=== PATIENT | male | born 1950 | race Caucasian/White ===

== ENCOUNTER 2017-06-25 18:28 | Inpatient (IN) | payer SELFPAY ==
[~2017-06-25] VITALS: Ht 177.8 cm; Wt 67.0 kg
[~2017-06-25 18:28] MED LIST: ALPR1CON PO; HYDR-2951 PO; LORTA5 PO
[2017-06-25 18:33] VITALS: BP 102/63; PULSE 77; RESP 18; TEMP 97.6; O2SAT 96
--- NOTE | 2017-06-25 19:48 | PD ---
HPI Chief Complaint: Pain: Acute or Chronic Time Seen by Provider: 19:26 Travel History International Travel<30 days: No Contact w/Intl Traveler<30days: No Traveled to known affect area: No History of Present Illness HPI This 66-year-old male presents to the emergency department complaining of left foot pain pallor and coolness over the past 10 days or so. Is a history of CAD , with a previous CABG as well as a mechanical aortic valve replacement, on warfarin. Denies any history of PAD. They did do a vein harvest in his upper left leg for his CABG. Denies any history of previous similar problems. Review of records shows that he had diminished pulses in his left foot in 2013 in his office visit. History of tobacco in the past. Otherwise had been feeling well. States symptoms came on fairly abruptly been worsening since onset. No other complaints. History Past Medical History Narrative Medical CAD, history of CABG History mechanical aortic valve replacement, on warfarin Allergies-Medications (Allergen,Severity, Reaction): Coded Allergies: codeine (Unverified Allergy, Severe, Rash, 06/25/17) Reported Meds & Prescriptions Reported Meds & Active Scripts Active Lortab 5/325 Tab (Hydrocodone-Acetaminophen) Acetaminophen 325/5 Hydrocodone Tab 1 Tab PO Q4H PRN Reported Lortab 5/500 Tab (Acetaminophen/Hydrocodone Bitart) 1 Tab Tab 1 Tab PO Q6HPRN Alprazolam 1 mg/ml oral soln (Alprazolam) 1 Mg/Ml Con 0.5 Mg PO HS Review of Systems Except as stated in HPI: all other systems reviewed are Neg Physical Exam Narrative GENERAL: 66-year-old man, no acute distress. SKIN: Focused skin assessment warm/dry. HEAD: Atraumatic. Normocephalic. EYES: Pupils equal and round. No scleral icterus. No injection or drainage. ENT: No nasal bleeding or discharge. Mucous membranes pink and moist. NECK: Trachea midline. No JVD. CARDIOVASCULAR: Regular rate and rhythm. No murmur appreciated. RESPIRATORY: No accessory muscle use. Clear to auscultation. Breath sounds equal bilaterally. GASTROINTESTINAL: Abdomen soft, non-tender, nondistended. Hepatic and splenic margins not palpable. MUSCULOSKELETAL: No obvious deformities. Left foot is minimally pale compared to the right. Capillary refill is 2-3 seconds, minimally prolonged compared to the right. Unable to palpate a DP pulse. With Doppler, there is a soft blowing pulse in the DP. No posterior tibial pulse. On the right, DP pulses palpable, PT pulses not palpable however could be found with Doppler. NEUROLOGICAL: Awake and alert. No obvious cranial nerve deficits. Motor grossly within normal limits. Normal speech. PSYCHIATRIC: Appropriate mood and affect; insight and judgment normal. Data Data Last Documented VS Vital Signs Date Time Temp Pulse Resp B/P (MAP) Pulse Ox O2 Delivery O2 Flow Rate FiO2 06/25/17 18:33 97.6 77 18 102/63 (76) 96 Orders Orders Complete Blood Count With Diff (06/25/17 19:42) Comprehensive Metabolic Panel (06/25/17 19:42) Act Partial Throm Time (Ptt) (06/25/17 19:42) Prothrombin Time / Inr (Pt) (06/25/17 19:42) Iv Access Insert/Monitor (06/25/17 19:42) Cta Runoff W Iv Contrast W 3d (06/25/17 ) [facility] Medical Decision Making Medical Screen Exam Complete: Yes Emergency Medical Condition: Yes Differential Diagnosis Peripheral arterial disease chronic, acute embolization or atherosclerotic plaque, dissection, other Narrative Course Medical decision making 66-year-old male presents emergency department for worsening peripheral arterial disease and pain in the left leg. He describes an acute worsening about 7-10 days ago. The leg is cool but not ischemic. He is on warfarin for his mechanical valve. Will check CTA, labs, reassess. Christos Valencia MD Jun 25, 2017 19:48
[2017-06-25] MEDS ORDERED: SODIUM CHLORID 0.9% 500 ML INJ 500 ML IV ONE (20:00)
[2017-06-25 20:07] LABS: AUTOMATED NEUTROPHIL # 3.5 TH/MM3 (1.8-7.7); BASOPHIL # 0.2 TH/MM3 (0-0.2); BASOPHIL % 3.3 % (0.0-2.0); EOSINOPHIL # 0.2 TH/MM3 (0-0.4); EOSINOPHIL % 2.8 % (0.0-4.0); HEMATOCRIT 41.3 % (39.0-51.0); HEMOGLOBIN 13.6 GM/DL (13.0-17.0); LYMPH % 28.8 % (9.0-44.0); LYMPHOCYTE # 1.7 TH/MM3 (1.0-4.8); MEAN CORPUSCULAR HEMOGLOBIN 32.2 PG (27.0-34.0); MEAN CORPUSCULAR HGB CONC 32.9 % (32.0-36.0); MEAN PLATELET VOLUME 8.4 FL (7.0-11.0); MONO % 7.7 % (0.0-8.0); MONOCYTE # 0.5 TH/MM3 (0-0.9); NEUT % 57.4 % (16.0-70.0); PLATELET COUNT 202 TH/MM3 (150-450); RED BLOOD COUNT 4.22 MIL/MM3 (4.50-5.90); RED CELL DISTRIBUTION WIDTH 15.6 % (11.6-17.2); WHITE BLOOD COUNT 6.1 TH/MM3 (4.0-11.0)
[2017-06-25 20:17] VITALS: BP 110/68; PULSE 72; RESP 14; O2SAT 99
[2017-06-25 20:18] LABS: CHLORIDE 108 MEQ/L (98-107); SODIUM (NA) 139 MEQ/L (136-145)
[2017-06-25 20:21] LABS: ALBUMIN 3.7 GM/DL (3.4-5.0); BICARBONATE 23.7 MEQ/L (21.0-32.0); CALCIUM 8.7 MG/DL (8.5-10.1); GLUCOSE,RANDOM 80 MG/DL (74-106)
[2017-06-25 20:22] LABS: BLOOD UREA NITROGEN 7 MG/DL (7-18)
[2017-06-25 20:23] LABS: INTERNATIONAL NORMALIZED RATIO 1.3 RATIO; PROTHROMBIN TIME - PATIENT 13.3 SEC (9.8-11.6)
[2017-06-25 20:24] LABS: ALT (GPT) 23 U/L (12-78)
[2017-06-25 20:25] LABS: AST (GOT) 26 U/L (15-37); GLOMERULAR FILTRATION RATE 75 ML/MIN (>89)
[2017-06-25 20:26] LABS: TOTAL BILIRUBIN ADULT 0.3 MG/DL (0.2-1.0); TOTAL PROTEIN 7.8 GM/DL (6.4-8.2)
[2017-06-25 20:27] LABS: ALKALINE PHOSPHATASE 84 U/L (45-117)
[2017-06-25] MEDS ORDERED: WARF4TAB51 PO (20:28)
[2017-06-25] MEDS ORDERED: IOHEXOL 350 MG/ML 10 ML VIAL (for RAD DIAG) IVCONTRAST ONE (21:23)
[2017-06-25 21:30] VITALS: BP 127/67; PULSE 68; RESP 14; O2SAT 98
[2017-06-25 22:50] VITALS: BP 138/78; PULSE 78; RESP 16; O2SAT 100
--- NOTE | 2017-06-25 22:55 | RADRPT ---
EXAM DATE/TIME: 06/25/2017 21:13 [facility] COMPARISON: No previous studies available for comparison. INDICATIONS : Left cold and painful foot. IV CONTRAST: 95 cc Omnipaque 350 (iohexol) IV RADIATION DOSE: 6.05 CTDIvol (mGy) MEDICAL HISTORY : Cardiovascular disease. SURGICAL HISTORY : CABG Aortic valve replacement. ENCOUNTER: Initial ACUITY: 1 day PAIN SCALE: 6/10 LOCATION: Left foot TECHNIQUE: Volumetric scanning was performed using a multi-row detector CT scanner. The data was post processed with a variety of visualization algorithms including full volume maximum intensity projection, multi -planar sliding thin slab reformation, curved planar reformation, and surface rendering techniques. Using automated exposure control and adjustment of the mA and/or kV according to patient size, radiat ion dose was kept as low as reasonably achievable to obtain optimal diagnostic quality images. DICO M format image data is available electronically for review and comparison. FINDINGS: Abdominal aorta: Mild atherosclerotic calcification without aneurysmal disease. Single bilateral renal arteries. The r ight is widely patent with a 50% nonostial stenosis of the left. Mild ostial stenosis of the celiac a nd the SMA with no significant stenosis Pelvis: Atherosclerotic calcification of the iliacs bilaterally but the iliacs both appear to be patent. Right lower extremity: Atherosclerotic calcification of the profunda and SFA but both are patent. Mild irregularity of the p opliteal. The popliteal is patent down to the trifurcation with three-vessel runoff. Left lower extremity: Abrupt occlusion of the common femoral artery with collateral reconstitution of the profunda. The pro ximal SFA is very diminutive and reconstitutes in the proximal 5. The vessel is irregular but patent down to the above-knee popliteal. The popliteal is widely patent extensive collaterals. Popliteal is patent on the trifurcation with 2 vessel runoff via the anterior tibial and peroneal. Miscellaneous: Cortical scarring in the upper and lower pole of the left kidney. Diverticular disease of the descend ing and sigmoid colon without diverticulitis. Abdominal and pelvic viscera are otherwise intact. CONCLUSION: 1. There is abrupt occlusion of the common femoral artery on the left characteristic of an acute or s ubacute occlusion. 2. However, brisk collaterals reconstitute the profunda which subsequently provides well-developed co llaterals to the above-knee popliteal. Popliteal is patent at the trifurcation with 2 vessel runoff. The SFA is diffusely diseased and quite diminutive proximally, reconstituting a few centimeters below the common femoral occlusion. 3. On the right, inflow and outflow are adequate with three-vessel runoff. 4. Cortical scarring in the upper and lower pole the left kidney. There is an approximate 50% nonosti al stenosis in the left renal artery. 5. 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 Carlos Parekh MD on June 25, 2017 at 22:40 Board Certified Radiologist. This report was verified electronically.
[2017-06-25] MEDS ORDERED: HEPARIN-D5W 25,000 U/250 ML 250 ML IV PRN (23:30)
[2017-06-25 23:54] VITALS: BP 144/79; PULSE 61; RESP 14; O2SAT 96
[2017-06-26] VITALS (7 sets, daily range): BP systolic 109–138; BP diastolic 60–75; PULSE 45–53; RESP 12–16; TEMP 97.3–98.1; O2SAT 94–97
--- NOTE | 2017-06-26 01:29 | PD.CAR.PN ---
CVT Progress Note Subjective/Hospital Course: Referral received Full consult TIEN Casillas Objective: Vital Signs Date Time Temp Pulse Resp B/P (MAP) Pulse Ox O2 Delivery O2 Flow Rate FiO2 06/25/17 23:54 61 14 144/79 (100) 96 Room Air 06/25/17 22:50 78 16 138/78 (98) 100 Room Air 06/25/17 21:30 68 14 127/67 (87) 98 Room Air 06/25/17 20:17 72 14 110/68 (82) 99 Room Air 06/25/17 18:33 97.6 77 18 102/63 (76) 96 Labs: Laboratory Tests Test 06/25/17 20:01 White Blood Count 6.1 TH/MM3 (4.0-11.0) Red Blood Count 4.22 MIL/MM3 (4.50-5.90) Hemoglobin 13.6 GM/DL (13.0-17.0) Hematocrit 41.3 % (39.0-51.0) Mean Corpuscular Volume 98.0 FL (80.0-100.0) Mean Corpuscular Hemoglobin 32.2 PG (27.0-34.0) Mean Corpuscular Hemoglobin Concent 32.9 % (32.0-36.0) Red Cell Distribution Width 15.6 % (11.6-17.2) Platelet Count 202 TH/MM3 (150-450) Mean Platelet Volume 8.4 FL (7.0-11.0) Neutrophils (%) (Auto) 57.4 % (16.0-70.0) Lymphocytes (%) (Auto) 28.8 % (9.0-44.0) Monocytes (%) (Auto) 7.7 % (0.0-8.0) Eosinophils (%) (Auto) 2.8 % (0.0-4.0) Basophils (%) (Auto) 3.3 % (0.0-2.0) Neutrophils # (Auto) 3.5 TH/MM3 (1.8-7.7) Lymphocytes # (Auto) 1.7 TH/MM3 (1.0-4.8) Monocytes # (Auto) 0.5 TH/MM3 (0-0.9) Eosinophils # (Auto) 0.2 TH/MM3 (0-0.4) Basophils # (Auto) 0.2 TH/MM3 (0-0.2) CBC Comment DIFF FINAL Differential Comment Prothrombin Time 13.3 SEC (9.8-11.6) Prothromb Time International Ratio 1.3 RATIO Activated Partial Thromboplast Time 27.3 SEC (24.3-30.1) Blood Urea Nitrogen 7 MG/DL (7-18) Creatinine 1.00 MG/DL (0.60-1.30) Random Glucose 80 MG/DL (74-106) Total Protein 7.8 GM/DL (6.4-8.2) Albumin 3.7 GM/DL (3.4-5.0) Calcium Level 8.7 MG/DL (8.5-10.1) Alkaline Phosphatase 84 U/L (45-117) Aspartate Amino Transf (AST/SGOT) 26 U/L (15-37) Alanine Aminotransferase (ALT/SGPT) 23 U/L (12-78) Total Bilirubin 0.3 MG/DL (0.2-1.0) Sodium Level 139 MEQ/L (136-145) Potassium Level 3.6 MEQ/L (3.5-5.1) Chloride Level 108 MEQ/L (98-107) Carbon Dioxide Level 23.7 MEQ/L (21.0-32.0) Anion Gap 7 MEQ/L (5-15) Estimat Glomerular Filtration Rate 75 ML/MIN (>89) Result Diagram: 06/25/17200006/25/172000 Michael Yu MD Jun 26, 2017 01:29
--- NOTE | 2017-06-26 03:30 | HHI.HP ---
[facility] Service [facility] Primary Care Physician Yolande Cooper MD Admission Diagnosis Left common femoral artery occlusion Diagnoses: Chief Complaint: left foot pain Travel History International Travel<30 Days: No Contact w/Intl Traveler <30 Da: No Traveled to Known Affected Are: No History of Present Illness 66 y/o male with a history chronic back pain, and aortic valve replacement presented to the ED with complaints of left foot pain and difficultly walking. He states for the last 2 days he has had pain in the left leg, and it felt cold and numb. He states the pain is burning 8/10, with radiation up his leg with associated numbness and tingling. Worse with movement and walking, better with rest. Patient states his Coumadin was 2.2 two days ago. Denies any chest pain, sob, fever or chills. Dr. Castañeda PCP has been following his levels, but he does not see her in person. Past Family Social History Past Medical History CAD Chronic back pain Past Surgical History Aortic Valve replacement Reported Medications Reported Meds & Active Scripts Active Reported Warfarin 2 Mg Tab 2 Mg PO DAILY Allergies: Coded Allergies: codeine (Unverified Allergy, Severe, Rash, 06/25/17) Active Ordered Medications Current Medications Medications (Trade) Dose Ordered Sig/Brittney Route Start Time Stop Time Status Last Admin Heparin Sodium/ Dextrose 250 ml @ 12 mls/hr TITRATE PRN IV 06/25/17 23:30 06/26/17 00:31 Family History Mom and Dad: Heart disease Social History Tobacco use: Denies Alcohol use: Occasionally Lives alone Physical Exam Vital Signs Vital Signs Date Time Temp Pulse Resp B/P (MAP) Pulse Ox O2 Delivery O2 Flow Rate FiO2 06/25/17 23:54 61 14 144/79 (100) 96 Room Air 06/25/17 22:50 78 16 138/78 (98) 100 Room Air 06/25/17 21:30 68 14 127/67 (87) 98 Room Air 06/25/17 20:17 72 14 110/68 (82) 99 Room Air 06/25/17 18:33 97.6 77 18 102/63 (76) 96 Physical Exam GENERAL: This is a well-nourished, well-developed patient, in no apparent distress. SKIN: No rashes, ecchymoses or lesions. Cool and dry. pale left foot. HEAD: Atraumatic. Normocephalic. EYES: Pupils equal round and reactive. Extraocular motions intact. ENT: Nose without bleeding, purulent drainage or septal hematoma. Airway patent. NECK: Trachea midline. No JVD or lymphadenopathy. Supple, nontender, no meningeal signs. CARDIOVASCULAR: Regular rate and rhythm without murmurs, gallops, or rubs. Tready left pedal pulse. RESPIRATORY: Clear to auscultation. Breath sounds equal bilaterally. No wheezes , rales, or rhonchi. GASTROINTESTINAL: Abdomen soft, non-tender, nondistended. No hepato-splenomegaly , or palpable masses. No guarding. MUSCULOSKELETAL: Extremities without clubbing, cyanosis, or edema. No joint tenderness, effusion, or edema noted. No calf tenderness. NEUROLOGICAL: Awake and alert. Motor and sensory grossly within normal limits. Normal speech. Laboratory Laboratory Tests Test 06/25/17 20:01 White Blood Count 6.1 Red Blood Count 4.22 Hemoglobin 13.6 Hematocrit 41.3 Mean Corpuscular Volume 98.0 Mean Corpuscular Hemoglobin 32.2 Mean Corpuscular Hemoglobin Concent 32.9 Red Cell Distribution Width 15.6 Platelet Count 202 Mean Platelet Volume 8.4 Neutrophils (%) (Auto) 57.4 Lymphocytes (%) (Auto) 28.8 Monocytes (%) (Auto) 7.7 Eosinophils (%) (Auto) 2.8 Basophils (%) (Auto) 3.3 Neutrophils # (Auto) 3.5 Lymphocytes # (Auto) 1.7 Monocytes # (Auto) 0.5 Eosinophils # (Auto) 0.2 Basophils # (Auto) 0.2 CBC Comment DIFF FINAL Differential Comment Prothrombin Time 13.3 Prothromb Time International Ratio 1.3 Activated Partial Thromboplast Time 27.3 Blood Urea Nitrogen 7 Creatinine 1.00 Random Glucose 80 Total Protein 7.8 Albumin 3.7 Calcium Level 8.7 Alkaline Phosphatase 84 Aspartate Amino Transf (AST/SGOT) 26 Alanine Aminotransferase (ALT/SGPT) 23 Total Bilirubin 0.3 Sodium Level 139 Potassium Level 3.6 Chloride Level 108 Carbon Dioxide Level 23.7 Anion Gap 7 Estimat Glomerular Filtration Rate 75 Result Diagram: 06/25/17200006/25/172000 Imaging Last Impressions Aorta w/Runoff CTA 06/25/17 0000 Signed Impressions: Service Date/Time: Sunday, June 25, 2017 21:13 - CONCLUSION: 1. There is abrupt occlusion of the common femoral artery on the left characteristic of an acute or subacute occlusion. 2. However, brisk collaterals reconstitute the profunda which subsequently provides well-developed collaterals to the above-knee popliteal. Popliteal is patent at the trifurcation with 2 vessel runoff. The SFA is diffusely diseased and quite diminutive proximally, reconstituting a few centimeters below the common femoral occlusion. 3. On the right, inflow and outflow are adequate with three-vessel runoff. 4. Cortical scarring in the upper and lower pole the left kidney. There is an approximate 50%% nonostial stenosis in the left renal artery. 5. 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 Carlos Parekh MD Caprini VTE Risk Assessment Caprini VTE Risk Assessment: Mod/High Risk (score >= 2) Caprini Risk Assessment Model Point Value = 1 Point Value = 2 Point Value = 3 Point Value = 5 Age 41-60 Minor surgery BMI > 25 kg/m2 Swollen legs Varicose veins or History of unexplained or recurrent spontaneous Oral contraceptives or hormone replacement Sepsis (< 1 month) Serious lung disease, including pneumonia (< 1 month) Abnormal pulmonary function Acute myocardial infarction Congestive heart failure (< 1 month) History of inflammatory bowel disease Medical patient at bed rest Age 61-74 Arthroscopic surgery Major open surgery (> 45 min) Laparoscopic surgery (> 45 min) Malignancy Confined to bed (> 72 hours) Immobilizing plaster cast Central venous access Age >= 75 History of VTE Family history of VTE Factor V Leiden Prothrombin [id number] Lupus anticoagulant Anticardiolipin antibodies Elevated serum homocysteine Heparin-induced thrombocytopenia Other congenital or acquired thrombophilia Stroke (< 1 month) Elective arthroplasty Hip, pelvis, or leg fracture Acute spinal cord injury (< 1 month) Prophylaxis Regimen Total Risk Factor Score Risk Level Prophylaxis Regimen 0-1 Low Early ambulation 2 Moderate Order ONE of the following: *Sequential Compression Device (SCD) *Heparin 5000 units SQ BID 3-4 Higher Order ONE of the following medications: *Heparin 5000 units SQ TID *Enoxaparin/Lovenox 40 mg SQ daily (WT < 150 kg, CrCl > 30 mL/min) *Enoxaparin/Lovenox 30 mg SQ daily (WT < 150 kg, CrCl > 10-29 mL/min) *Enoxaparin/Lovenox 30 mg SQ BID (WT < 150 kg, CrCl > 30 mL/min) AND/OR *Sequential Compression Device (SCD) 5 or more Highest Order ONE of the following medications: *Heparin 5000 units SQ TID (Preferred with Epidurals) *Enoxaparin/Lovenox 40 mg SQ daily (WT < 150 kg, CrCl > 30 mL/min) *Enoxaparin/Lovenox 30 mg SQ daily (WT < 150 kg, CrCl > 10-29 mL/min) *Enoxaparin/Lovenox 30 mg SQ BID (WT < 150 kg, CrCl > 30 mL/min) AND *Sequential Compression Device (SCD) Assessment and Plan Problem List: (1) Subtherapeutic anticoagulation ICD Code: Z51.81 - Encounter for therapeutic drug level monitoring; Z79.01 - snf (current) use of anticoagulants (2) Acute occlusion of artery of lower extremity due to thromboembolism ICD Code: I74.3 - Embolism and thrombosis of arteries of the lower extremities Assessment and Plan 66 y/o male with a history chronic back pain, and aortic valve replacement presented to the ED with complaints of left foot pain and difficultly walking. Acute occlusion of artery of lower extremity due to thromboembolism, likely due to subtherapeutic INR CTA reviewed and shows an abrupt occlusion of the common femoral artery on the left. -Consult vascular surgery -Heparin drip -Morphine for pain management Subtherapeutic anticoagulation INR 1.3 -Cont Heparin drip -Hold Coumadin until surgery has seen patient DVT prophylaxis: Heparin Discussed Condition With Patient and RN Physician Certification 2 Midnight Certification Type: Admission for Inpatient Services Order for Inpatient Services The services are ordered in accordance with Medicare regulations or non- Medicare payer requirements, as applicable. In the case of services not specified as inpatient-only, they are appropriately provided as inpatient services in accordance with the 2-midnight benchmark. Estimated LOS (days): 2 days is the estimated time the patient will need to remain in the hospital, assuming treatment plan goals are met and no additional complications. Post-Hospital Plan: Not yet determined Sulema Becker Jun 26, 2017 03:30
--- NOTE | 2017-06-26 06:55 | RADRPT ---
EXAM DATE/TIME: 06/26/2017 06:13 [facility] COMPARISON: CTA RUNOFF W 3D RECON, June 25, 2017, 21:13. INDICATIONS : Evaluate for any pulmonary disease as patient is being pre-oped for left leg vascular surgery. MEDICAL HISTORY : Cardiovascular disease. SURGICAL HISTORY : CABG. ENCOUNTER: Initial ACUITY: 1 day PAIN SCORE: 0/10 LOCATION: Bilateral chest FINDINGS: A single view of the chest demonstrates the lungs to be symmetrically aerated without evidence of mas s, infiltrate or effusion. Status post CABG. Prominence of the right hilum. The cardiomediastinal co ntours are unremarkable. Osseous structures are intact. CONCLUSION: 1. Prominence of the right hilum. Contrast CT chest may be warranted. 2. Status post CABG. Travon Sibley MD on June 26, 2017 at 6:52 Board Certified Radiologist. This report was verified electronically.
[2017-06-26] MEDS ORDERED: ceFAZolin 2 GM PREMIX 50 ML IV SCH (10:30)
--- NOTE | 2017-06-26 10:53 | HHI.PR ---
Addendum to Inpatient Note Addendum Reason: Additional Documentation Additional Information The patient was evaluated by vascular surgery and was scheduled to go to the operating room shortly. He said he had some discomfort but otherwise is feeling well. He says he is still smoking E cigarettes. He was about to have another IV placed. Continue heparin drip. Pain control as needed. Further management per vascular surgery. Telly Alba DO Jun 26, 2017 10:53
[2017-06-26] MEDS: NS + KCL 20 MEQ INJ 1,000 ML IV SCH ×2 (12:05→19:46)
--- NOTE | 2017-06-26 12:13 | ECHRPT ---
Indication: CARDIO ARTERIAL EMBOLISM CONCLUSIONS Normal left ventricular size. Mild concentric left ventricular hypertrophy. The left ventricular systolic function is low normal with an estimated ejection fraction in the rang e of 50- 55%. The left atrial size is mildly dilated. The right atrial size is mildly dilated. No atrial level shunt is demonstrated by color flow Doppler interrogation. The interatrial septum no t well visualized. The aortic root and proximal ascending aorta are not well visualized. The aortic valve prosthesis is normal to two-dimensional,there is mild prosthetic regurgitation of t he aortic valve prosthesis. Doppler interrogation. There is mild tricuspid valve regurgitation. The estimated pulmonary arterial pressure is 45 mmHg. Trivial pulmonary valve regurgitation. BP: 134 / 68 HR: 48 Rhythm: Sinus MEASUREMENTS (Male / Female) Normal Values Technical Quality:Fair 2D ECHO LV Diastolic Diameter PLAX 4.8 cm 4.2 - 5.9 / 3.9 - 5.3 cm LV Systolic Diameter PLAX 3.8 cm IVS Diastolic Thickness 1.3 cm 0.6 - 1.0 / 0.6 - 0.9 cm LVPW Diastolic Thickness 1.3 cm 0.6 - 1.0 / 0.6 - 0.9 cm LV Relative Wall Thickness 0.6 RV Internal Dim ED PLAX 3.7 cm LVOT Diameter 3.0 cm Aortic Root Diameter 4.2 cm LA Systolic Diameter LX 3.4 cm 3.0 - 4.0 / 2.7 - 3.8 cm DOPPLER AV Peak Velocity 192.0 cm/s AV Peak Gradient 14.7 mmHg AV Mean Gradient 8.0 mmHg AV Velocity Time Integral 40.2 cm LVOT Peak Velocity 60.2 cm/s LVOT Peak Gradient 1.4 mmHg LVOT Velocity Time Integral 14.9 cm AV Area Cont Eq vti 2.6 cm AV Area Cont Eq pk 2.2 cm Mitral E Point Velocity 73.1 cm/s Mitral A Point Velocity 51.3 cm/s Mitral E to A Ratio 1.4 LV E' Lateral Velocity 8.7 cm/s Mitral E to LV E' Lateral Ratio 8.4 LV E' Septal Velocity 6.0 cm/s Mitral E to LV E' Septal Ratio 12.1 TR Peak Velocity 296.0 cm/s TR Peak Gradient 35.0 mmHg Right Atrial Pressure 10.0 mmHg Pulmonary Artery Systolic Pressu 45.0 mmHg Right Ventricular Systolic Press 45.0 mmHg PV Peak Velocity 42.1 cm/s PV Peak Gradient 0.7 mmHg FINDINGS LEFT VENTRICLE Normal left ventricular size. Mild concentric left ventricular hypertrophy. The left ventricular systolic function is low normal with an estimated ejection fraction in the rang e of 50- 55%. RIGHT VENTRICLE Normal right ventricular size and systolic function. LEFT ATRIUM The left atrial size is mildly dilated. RIGHT ATRIUM The right atrial size is mildly dilated. ATRIAL SEPTUM No atrial level shunt is demonstrated by color flow Doppler interrogation. The interatrial septum no t well visualized. AORTA The aortic root and proximal ascending aorta are not well visualized. MITRAL VALVE Structurally normal mitral valve. No mitral valve stenosis or regurgitation. AORTIC VALVE The aortic valve prosthesis is normal to two-dimensional,there is mild prosthetic regurgitation of t he aortic valve prosthesis. Doppler interrogation. TRICUSPID VALVE There is mild tricuspid valve regurgitation. The estimated pulmonary arterial pressure is 45 mmHg. PULMONARY VALVE Trivial pulmonary valve regurgitation. VESSELS The inferior vena cava is normal in size. PERICARDIUM No pericardial effusion. Christos Owen MD, FACC (Electronically Signed) Final Date:26 June 2017 12:12
[2017-06-26] MEDS ORDERED: HEPARIN SODIUM - SQ 10,000 UNITS/ML VIAL ONE (12:44)
[2017-06-26] MEDS ORDERED: PROTAMINE SULFATE 50 MG/5 ML VIAL ONE (12:45)
[2017-06-26] MEDS ORDERED: HEPARIN SODIUM - IV 10,000 UNITS/10 ML VIAL ONE (12:45)
[2017-06-26] MEDS ORDERED: BUPIVACAINE/EPINEPHRINE 0.5% PF 30 ML VIAL ONE ×2 (13:19→14:22)
[2017-06-26] MEDS ORDERED: NITROGLYCERIN INJ 0 ML ONE (13:36)
[2017-06-26] MEDS ORDERED: ceFAZolin INJ 1,000 MG VIAL IV ONE (13:55)
[2017-06-26] MEDS ORDERED: LIDOCAINE HCL 2% PF 10 ML VIAL ONE (14:22)
[2017-06-26] MEDS ORDERED: DO NOT ADM ANY ANTICOAGULANT DRUGS PRN (16:32)
--- NOTE | 2017-06-26 17:42 | EKG ---
Date Performed: 06/26/2017 Time Performed: 02:01:23 PTAGE: 66 years EKG: SINUS BRADYCARDIA now consider ANTERIOR MYOCARDIAL INFARCTION age intederminate and prolon ged QT interval. MODERATE T-WAVE ABNORMALITY, CONSIDER LATERAL ISCHEMIA ABNORMAL ECG NO PREVIOUS TRACING DOCTOR: Esteban Au Interpretating Date/Time 06/26/2017 17:41:47
[2017-06-26] MEDS: MORPHINE SULFATE 2 MG/ML SYRINGE IV PUSH PRN (18:03)
[2017-06-26] MEDS ORDERED: oxyCODONE/ACETAMINOPHEN 5 MG/325 MG TAB PO PRN (19:45)
[2017-06-26] MEDS: APIXABAN 5 MG TABLET PO SCH (19:50)
--- NOTE | 2017-06-26 20:00 | MB ---
cc: Michael Yu MD DATE: 06/25/2017 CONSULTING PHYSICIAN: Michael Yu MD, vascular surgery REASON FOR CONSULTATION: Peripheral vascular disease, ischemia of the left leg, external iliac, common femoral occlusion, coronary artery disease. HISTORY OF PRESENT DISEASE: This is a 66-year-old male with a history of aortic valve replacement several years ago, comes complaining to the emergency room about pain in the left foot, which has been going on for about 10 days. For the last 2 days, it has been severe and hence, the presentation. The patient also states there is some numbness and tingling. The patient is now in the process of workup. PAST MEDICAL HISTORY: Coronary artery disease, chronic back pain and aortic stenosis, for which the patient underwent aortic valve replacement. PAST SURGICAL HISTORY: Of course, the aortic open heart surgery with aortic valve replacement. MEDICATIONS: Coumadin 2 mg daily. It should be noted patient's PT/INR is near normal, so that is not working. SOCIAL HISTORY: The patient does not smoke and drinks socially. PHYSICAL EXAMINATION: GENERAL: Reveals a pleasant 66-year-old gentleman. HEENT: Normocephalic, no trauma to the head. Pupils equal, reactive. Extraocular muscles intact. NECK: Bilateral carotid pulses and faint right-sided bruit. CHEST: Bilateral breath sounds. HEART: Regular rhythm. ABDOMEN: Soft, active bowel sounds. EXTREMITIES: The patient has palpable right femoral, popliteal, dorsalis pedis and posterior tibial pulse. On the left side, patient has no palpable femoral pulse; however, it is dopplerable. Popliteal is strong and dopplerable, and dorsalis pedis and posterior tibial pulse are very weak by Doppler, but not palpable. Foot is warm, but slightly cooler than the left side and capillary refill is delayed. NEUROLOGIC: The patient is fully intact and has preserved sensation in the left foot. IMPRESSION AND RECOMMENDATIONS: I reviewed laboratory and diagnostic procedures. This gentleman has clearly vascular occlusive disease. At this point, based on the CTA with runoff, patient has a chronic occlusive disease with external iliac artery occlusion in distal portion and then reconstitution of the superficial femoral artery. Common femoral artery is probably occluded from acute thromboembolus, so this is basically an atherosclerotic disease, superimposed on that occlusion of thromboembolic nature. The patient is started on a heparin and will require surgery. He will go for thromboembolectomy, endarterectomy and possible femoral popliteal bypass depending how things go. Thank you very much for the referral. CRITICAL CARE: 40 minutes. MD HERMELINDO Kingston/SHE , 07:40 PM , 07:59 PM
--- NOTE | 2017-06-26 20:21 | MP ---
cc: Michael Yu MD, Slobodan MD DATE OF OPERATION: 06/26/2017 POSTOPERATIVE DIAGNOSIS:. Ischemia of the left leg, left external iliac and common femoral occlusion. POSTOPERATIVE DIAGNOSIS: Ischemia of the left leg, left external iliac and common femoral occlusion. OPERATIVE PROCEDURE: Left external iliac and common femoral artery endarterectomy, left profundoplasty, left superficial femoral artery thromboembolectomy and left external iliac and common femoral patch angioplasty. SURGEON: Dr. Michael Yu ANESTHESIA: General. ESTIMATED BLOOD LOSS: 150 mL PROCEDURE IN DETAIL: The patient prepped and draped in the usual fashion. A left oblique groin incision made slightly higher to be able to access the external iliac artery. This one is deepened through the layers until the common femoral, deep femoral, superficial femoral arteries are isolated and then with an upper arm retractor the area under the inguinal ligament is exposed and the distal external iliac artery exposed fairly high up. The patient is given 5000 units of heparin and then area is observed. Vessel loops are placed around deep femoral, superficial femoral artery and external iliac artery. The common femoral artery is clearly occluded and occlusion is onto the deep femoral artery. The superficial femoral artery distally seems to be collapsed, but there is some flow in it by Doppler. External iliac artery proximal to distally is clearly occluded and there is a hard plaque in it. The Satinsky clamp is now applied to the external iliac artery and profunda clamp to the deep femoral and the vessels opened longitudinally using Guo scissors. It is noted that the patient has a large clot sitting in the common femoral artery and extending into external iliac artery. This one is removed. It is now noted that the patient has near occlusion of common femoral artery with a large plaque posteriorly. The #4 Chanel is now introduced and passed distally and clot is retrieved from the superficial femoral artery and then #5 Chanel is introduced distally and passed twice more, no more clot is obtained. The Chanel can be passed completely down to the posterior tibial artery and toward the foot. Superficial femoral artery appears to be smooth and this one is now flushed with heparinized saline and the profunda clamp reapplied. The deep femoral artery is now attended. There is a clot sitting in there. This one is retrieved with #4 Chanel and there is a brisk backflow. A profunda clamp is gently applied to deep femoral. Now, the proximal inflow is attended. The Satinsky clamp is released and there is only weak flow down. This pushes also 1 clot out, but once I try to pass the Chanel up it is clear that patient has atherosclerotic occlusion. Therefore, the vessel is opened further up and there is a huge atherosclerotic plaque completely occluding external iliac artery, which then fills by reconstitution from the collaterals. With a Lostant dissector, the entire plaque is now removed going from external iliac into the common femoral artery and this one is submitted for pathology. This is a huge plaque. The mucosa is smoothed out now and the small debris removed with heparinized saline and [place]. A large 2 x 10 cm Bovine patch is chosen, tailored to size and then patch angioplasty carried out with 5-0 running Prolene. The vessel is back-flushed prior to completion of the closure and then blood flow is reestablished. At this point, the patient has a bounding pulse in all vessels and a brisk flow to the foot and foot readily becomes nice and pink. The patient now has strong dopplerable pulses in the left dorsalis pedis and posterior tibial arteries and as well as in popliteal. Area irrigated with saline. Meticulous hemostasis is obtained with some 6-0 Prolene additional stitch or two and then piece of Surgicel placed over the vessel. Incision closed with 0 Vicryl and 4-0 Monocryl. The patient tolerated the procedure well. MD HERMELINDO Kingston/ , 07:46 PM , 08:20 PM
[2017-06-27] VITALS (10 sets, daily range): BP systolic 96–140; BP diastolic 55–86; PULSE 54–79; RESP 16–20; TEMP 97.5–100.8; O2SAT 90–99
[2017-06-27] MEDS: NS + KCL 20 MEQ INJ 1,000 ML IV SCH (02:30)
[2017-06-27 02:47] LABS: HEMATOCRIT 36.8 % (39.0-51.0); HEMOGLOBIN 12.4 GM/DL (13.0-17.0); MEAN CELL VOLUME 99.3 FL (80.0-100.0); MEAN CORPUSCULAR HEMOGLOBIN 33.5 PG (27.0-34.0); MEAN CORPUSCULAR HGB CONC 33.7 % (32.0-36.0); MEAN PLATELET VOLUME 8.2 FL (7.0-11.0); PLATELET COUNT 196 TH/MM3 (150-450); RED BLOOD COUNT 3.71 MIL/MM3 (4.50-5.90); RED CELL DISTRIBUTION WIDTH 15.6 % (11.6-17.2); WHITE BLOOD COUNT 7.2 TH/MM3 (4.0-11.0)
[2017-06-27 03:03] LABS: BICARBONATE 27.3 MEQ/L (21.0-32.0); CALCIUM 7.7 MG/DL (8.5-10.1); CREATININE 0.99 MG/DL (0.60-1.30); MAGNESIUM 1.9 MG/DL (1.5-2.5)
[2017-06-27] MEDS ORDERED: ACETAMINOPHEN 325 MG TAB PO PRN (05:15)
[2017-06-27] MEDS: MORPHINE SULFATE 2 MG/ML SYRINGE IV PUSH PRN ×3 (05:20→21:16)
[2017-06-27] MEDS: APIXABAN 5 MG TABLET PO SCH ×2 (08:28→21:16)
--- NOTE | 2017-06-27 09:09 | RADRPT ---
EXAM DATE/TIME: 06/27/2017 08:32 [place] COMPARISON: No previous studies available for comparison. EXTERNAL COMPARISON : [facility], US CAROTID ARTERIES, October 04, 2013 INDICATIONS : Right bruit grade 2. MEDICAL HISTORY : Cardiovascular disease. Peripheral vascular disease. Hearing loss. Menengitis. Anticoagulant ther apy. Heart murmur. Measles. SURGICAL HISTORY : CABG. Tonsillectomy. Vasectomy. Aortic valve replacement. ENCOUNTER: Initial ACUITY: 1 day PAIN SCORE: 8/10 LOCATION: Bilateral neck PEAK SYSTOLIC VELOCITIES (cm/sec): ICA/CCA RATIO: Right: 1.3 Left: 2.0 ICA: Right: 114 Left: 189 CCA: Right: 88 Left: 97 ECA: Right: 150 Left: 129 VERTEBRAL: Right: 63 antegrade Left: 120 antegrade Elevated flow velocities and ICA/CCA ratios have been found to correlate with increased degrees of vessel stenosis, calculated as percentage of diameter relative to a normal segment of distal ICA/CCA FINDINGS: RIGHT CAROTID: No significant stenosis is visualized. The waveforms are within normal limits. LEFT CAROTID: No significant stenosis is visualized. The waveforms are within normal limits. VERTEBRAL ARTERIES: Antegrade flow is seen in both vertebral arteries. MISCELLANEOUS: None. CONCLUSION: Normal examination. The velocities are elevated but the lumen is widely patent. Christos Stone MD on June 27, 2017 at 9:05 Board Certified Radiologist. This report was verified electronically.
[2017-06-27] MEDS ORDERED: PNEUMOCOCCAL POLYVALENT INJ 25 MCG/0.5 ML SYR IM ONE (10:00)
--- NOTE | 2017-06-27 14:57 | PD.CAR.PN ---
CVT Progress Note Subjective/Hospital Course: Referral received Full consult TIEN Casillas 06/27/2018 Patient is status post left external iliac and common femoral endarterectomy and thromboembolectomy with bovine patch angioplasty Incision is clean and dry and patient is bounding distal pulses with excellent flow Patient should be able to ambulate in from my point can get incision wet tomorrow and be discharged at any time Follow-up with me in about 2-3 weeks Objective: Vital Signs Date Time Temp Pulse Resp B/P (MAP) Pulse Ox O2 Delivery O2 Flow Rate FiO2 06/27/17 12:00 99.0 61 20 96/60 (72) 93 06/27/17 08:00 98.3 57 16 116/63 (80) 94 06/27/17 06:00 100.8 59 17 113/59 (77) 93 06/27/17 01:28 54 06/27/17 01:00 90 21 06/27/17 00:00 98.2 60 18 124/71 (88) 91 06/26/17 19:38 97.3 53 16 109/60 (76) 94 06/26/17 18:00 97.3 52 16 126/75 (92) 96 06/26/17 17:00 97.6 52 20 108/64 (79) 96 Nasal Cannula 2 06/26/17 16:45 97.6 52 20 108/64 (79) 96 Nasal Cannula 2 06/26/17 16:27 97.6 53 20 110/64 (79) 96 Nasal Cannula 2 Result Diagram: 06/27/1722906/27/17229 Michael Yu MD Jun 27, 2017 14:57
[2017-06-27] MEDS ORDERED: APIX5TAB PO (18:55)
--- NOTE | 2017-06-27 19:03 | HHI.PR ---
Subjective Remarks Patient says he is feeling well. Denies any chest pain or shortness of breath. Denies any nausea or vomiting. Objective Vital Signs Date Time Temp Pulse Resp B/P (MAP) Pulse Ox O2 Delivery O2 Flow Rate FiO2 06/27/17 18:32 93 21 06/27/17 16:00 99.5 62 18 140/86 (104) 93 06/27/17 15:11 61 06/27/17 12:00 99.0 61 20 96/60 (72) 93 06/27/17 08:00 98.3 57 16 116/63 (80) 94 06/27/17 06:00 100.8 59 17 113/59 (77) 93 06/27/17 01:28 54 06/27/17 01:00 90 21 06/27/17 00:00 98.2 60 18 124/71 (88) 91 06/26/17 19:38 97.3 53 16 109/60 (76) 94 I/O 06/26/17 06/26/17 06/26/17 06/27/17 06/27/17 06/27/17 07:00 15:00 23:00 07:00 15:00 23:00 Intake Total 1700 ml 1440 ml 2600 ml Output Total 500 ml 700 ml 500 ml 1294 ml Balance -500 ml 1000 ml 940 ml 1306 ml Intake Oral 240 ml 1400 ml IV Total 1700 ml 1200 ml 1200 ml Output Urine Total 500 ml 550 ml 500 ml 1294 ml Estimated Blood Loss 150 ml # Bowel Movements 1 Result Diagram: 06/27/17 0230 06/27/17 0230 Imaging Last Impressions Carotid Artery Ultrasound 06/27/17 0000 Signed Impressions: Service Date/Time: Tuesday, June 27, 2017 08:32 - CONCLUSION: Normal examination. The velocities are elevated but the lumen is widely patent. Christos Stone MD Chest X-Ray 06/26/17 0000 Signed Impressions: Service Date/Time: June 06:13 - CONCLUSION: 1. Prominence of the right hilum. Contrast CT chest may be warranted. 2. Status post CABG. Travon Sibley MD Aorta w/Runoff CTA 06/25/17 0000 Signed Impressions: Service Date/Time: Sunday, June 25, 2017 21:13 - CONCLUSION: 1. There is abrupt occlusion of the common femoral artery on the left characteristic of an acute or subacute occlusion. 2. However, brisk collaterals reconstitute the profunda which subsequently provides well-developed collaterals to the above-knee popliteal. Popliteal is patent at the trifurcation with 2 vessel runoff. The SFA is diffusely diseased and quite diminutive proximally, reconstituting a few centimeters below the common femoral occlusion. 3. On the right, inflow and outflow are adequate with three-vessel runoff. 4. Cortical scarring in the upper and lower pole the left kidney. There is an approximate 50%% nonostial stenosis in the left renal artery. 5. 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 Carlos Parekh MD Objective Remarks GENERAL: in bed. Appears comfortable. Alert and oriented 4. SKIN: Warm and dry. HEAD: Normocephalic. EYES: No scleral icterus. No injection or drainage. NECK: Supple, trachea midline. No JVD. CARDIOVASCULAR: Regular rate and rhythm without murmurs, gallops, or rubs. RESPIRATORY: Breath sounds equal bilaterally. No accessory muscle use. GASTROINTESTINAL: Abdomen soft, non-tender, nondistended. MUSCULOSKELETAL: No cyanosis, or edema. BACK: Nontender without obvious deformity. No CVA tenderness. A/P Assessment and Plan 66 y/o male with a history chronic back pain, and aortic valve replacement presented to the ED with complaints of left foot pain and difficultly walking. //Acute occlusion of artery of lower extremity due to thromboembolism, likely due to subtherapeutic INR CTA reviewed and shows an abrupt occlusion of the common femoral artery on the left. -Consult vascular surgery -Heparin drip -Morphine for pain management = 06/27. Patient underwent left external iliac and common femoral endarterectomy with thromboembolectomy , bovine patch angioplasty. Patient is cleared by vascular surgery. Patient will continue on Eliquis as per vascular surgery. //Subtherapeutic anticoagulation INR 1.3 -Cont Heparin drip -Hold Coumadin until surgery has seen patient = Patient will be sent home on Eliquis as per vascular surgery. DVT prophylaxis: Heparin Discussed Condition With Patient and hospice superintendent Planning [facility] surgery has cleared patient for discharge. Discharge home in good condition. Continue previous diet. Keep Steri-Strips dry until tomorrow. Please see discharge medication reconciliation for medication list. Follow-up with vascular surgery, primary care as outpatient. Otoniel Dior MD Jun 27, 2017 19:03
--- NOTE | 2017-06-27 19:04 | HHI.DS ---
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 Brief History - From Admission 66 y/o male with a history chronic back pain, and aortic valve replacement presented to the ED with complaints of left foot pain and difficultly walking. He states for the last 2 days he has had pain in the left leg, and it felt cold and numb. He states the pain is burning 8/10, with radiation up his leg with associated numbness and tingling. Worse with movement and walking, better with rest. Patient states his Coumadin was 2.2 two days ago. Denies any chest pain, sob, fever or chills. Dr. Castañeda PCP has been following his levels, but he does not see her in person. CBC/BMP: 06/27/17 0230 06/27/17 0230 Significant Findings Laboratory Tests Test 06/25/17 20:01 06/26/17 07:37 06/26/17 10:48 06/26/17 18:57 Red Blood Count 4.22 MIL/MM3 (4.50-5.90) Basophils (%) (Auto) 3.3 % (0.0-2.0) Prothrombin Time 13.3 SEC (9.8-11.6) Chloride Level 108 MEQ/L (98-107) Estimat Glomerular Filtration Rate 75 ML/MIN (>89) Activated Partial Thromboplast Time 92.4 SEC (24.3-30.1) 53.4 SEC (24.3-30.1) 41.3 SEC (24.3-30.1) Test 06/27/17 02:30 Red Blood Count 3.71 MIL/MM3 (4.50-5.90) Hemoglobin 12.4 GM/DL (13.0-17.0) Hematocrit 36.8 % (39.0-51.0) Activated Partial Thromboplast Time 30.4 SEC (24.3-30.1) Blood Urea Nitrogen 6 MG/DL (7-18) Calcium Level 7.7 MG/DL (8.5-10.1) Estimat Glomerular Filtration Rate 76 ML/MIN (>89) Imaging Last Impressions Carotid Artery Ultrasound 06/27/17 0000 Signed Impressions: Service Date/Time: Tuesday, June 27, 2017 08:32 - CONCLUSION: Normal examination. The velocities are elevated but the lumen is widely patent. Christos Stone MD Chest X-Ray 06/26/17 0000 Signed Impressions: Service Date/Time: June 06:13 - CONCLUSION: 1. Prominence of the right hilum. Contrast CT chest may be warranted. 2. Status post CABG. Travon Sibley MD Aorta w/Runoff CTA 06/25/17 0000 Signed Impressions: Service Date/Time: Sunday, June 25, 2017 21:13 - CONCLUSION: 1. There is abrupt occlusion of the common femoral artery on the left characteristic of an acute or subacute occlusion. 2. However, brisk collaterals reconstitute the profunda which subsequently provides well-developed collaterals to the above-knee popliteal. Popliteal is patent at the trifurcation with 2 vessel runoff. The SFA is diffusely diseased and quite diminutive proximally, reconstituting a few centimeters below the common femoral occlusion. 3. On the right, inflow and outflow are adequate with three-vessel runoff. 4. Cortical scarring in the upper and lower pole the left kidney. There is an approximate 50%% nonostial stenosis in the left renal artery. 5. 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 Carlos Parekh MD Hospital Course 66 y/o male with a history chronic back pain, and aortic valve replacement presented to the ED with complaints of left foot pain and difficultly walking. //Acute occlusion of artery of lower extremity due to thromboembolism, likely due to subtherapeutic INR CTA reviewed and shows an abrupt occlusion of the common femoral artery on the left. -Consult vascular surgery -Heparin drip -Morphine for pain management = 06/27. Patient underwent left external iliac and common femoral endarterectomy with thromboembolectomy , bovine patch angioplasty. Patient is cleared by vascular surgery. Patient will continue on Eliquis as per vascular surgery. //Subtherapeutic anticoagulation INR 1.3 -Cont Heparin drip -Hold Coumadin until surgery has seen patient = Patient will be sent home on Eliquis as per vascular surgery. DVT prophylaxis: Heparin Discussed Condition With Patient and sample collector Planning [facility] surgery has cleared patient for discharge. Discharge home in good condition. Continue previous diet. Keep Steri-Strips dry until tomorrow. Please see discharge medication reconciliation for medication list. Follow-up with vascular surgery, primary care as outpatient. Pt Condition on Discharge: Good Discharge Disposition: Discharge Home Discharge Time: > 30 minutes Discharge Instructions DIET: Follow Instructions for: Heart Healthy Diet Activities you can perform: Regular-No Restrictions, See Additionl Instruction Other Activity Instructions: do not get incision wet until 06/28 Follow up Referrals: PCP Follow-up - 1 Week with Yolande Cooper MD Vascular Surgery - 1 Week with Michael Yu MD New Medications: Apixaban (Eliquis) 5 Mg Tab 5 MG PO BID for Blood Clot Prevention for 30 Days, #60 TAB Discontinued Medications: Warfarin (Warfarin) 2 Mg Tab 2 MG PO DAILY for Blood Clot Prevention, #30 TAB 0 Refills Otoniel Dior MD Jun 27, 2017 19:04
[2017-06-28] VITALS: BP 123/71; PULSE 68; RESP 17; TEMP 97; O2SAT 94
[2017-06-28 04:00] VITALS: BP 140/76; PULSE 78; RESP 20; TEMP 97.9; O2SAT 93
[2017-06-28 08:00] VITALS: BP 124/67; PULSE 72; RESP 17; TEMP 98.6; O2SAT 92
[2017-06-28] MEDS: APIXABAN 5 MG TABLET PO SCH (08:32)
[2017-06-28] MEDS ORDERED: OXYC1TAB63 PO (09:53)
--- NOTE | 2017-06-28 21:51 | HHI.PR ---
Subjective Remarks Patient says he is feeling well. Feels like going home. Denies any chest pain or shortness breath. Objective Vital Signs Date Time Temp Pulse Resp B/P (MAP) Pulse Ox O2 Delivery O2 Flow Rate FiO2 06/28/17 10:08 21 06/28/17 08:00 98.6 72 17 124/67 (86) 92 06/28/17 04:00 97.9 78 20 140/76 (97) 93 06/28/17 00:00 97.0 68 17 123/71 (88) 94 I/O 06/27/17 06/27/17 06/27/17 06/28/17 06/28/17 06/28/17 07:00 15:00 23:00 07:00 15:00 23:00 Intake Total 1440 ml 2600 ml Output Total 500 ml 1294 ml 1700 ml Balance 940 ml 1306 ml -1700 ml Intake Oral 240 ml 1400 ml IV Total 1200 ml 1200 ml Output Urine Total 500 ml 1294 ml 1700 ml # Bowel Movements 1 Result Diagram: 06/27/17 0230 06/27/17 0230 Objective Remarks GENERAL: in bed. Appears comfortable. Alert and oriented 4.no change on exam SKIN: Warm and dry. HEAD: Normocephalic. EYES: No scleral icterus. No injection or drainage. NECK: Supple, trachea midline. No JVD. CARDIOVASCULAR: Regular rate and rhythm without murmurs, gallops, or rubs. RESPIRATORY: Breath sounds equal bilaterally. No accessory muscle use. GASTROINTESTINAL: Abdomen soft, non-tender, nondistended. MUSCULOSKELETAL: No cyanosis, or edema. BACK: Nontender without obvious deformity. No CVA tenderness. A/P Assessment and Plan 06/28. Patient examined. Doing well. Discharge home. Follow-up with vascular surgery as outpatient. 66 y/o male with a history chronic back pain, and aortic valve replacement presented to the ED with complaints of left foot pain and difficultly walking. //Acute occlusion of artery of lower extremity due to thromboembolism, likely due to subtherapeutic INR CTA reviewed and shows an abrupt occlusion of the common femoral artery on the left. -Consult vascular surgery -Heparin drip -Morphine for pain management = 06/27. Patient underwent left external iliac and common femoral endarterectomy with thromboembolectomy , bovine patch angioplasty. Patient is cleared by vascular surgery. Patient will continue on Eliquis as per vascular surgery. //Subtherapeutic anticoagulation INR 1.3 -Cont Heparin drip -Hold Coumadin until surgery has seen patient = Patient will be sent home on Eliquis as per vascular surgery. DVT prophylaxis: Heparin Discussed Condition With Patient and personnel generalist manager Planning [facility] surgery has cleared patient for discharge. Discharge home in good condition. Continue previous diet. Keep Steri-Strips dry until tomorrow. Please see discharge medication reconciliation for medication list. Follow-up with vascular surgery, primary care as outpatient. Otoniel Dior MD Jun 28, 2017 21:51
== END 2017-06-28 12:04 | disposition home or self-care (01) | DRG 271 ==
LOC: PHED 18:28 → PHEDA 23:43 → NEPFCDU 06-26 03:26 → N07B 06-26 12:44
PROVIDERS: ADMIT Internal Medicine; ATTEND Internal Medicine
PROC: 04CL0ZZ Extirpation of Matter from Left Femoral Artery, Open Approach (ICD-10-PCS; 2017-06-26)
PROC: 04UJ0KZ Supplement Left External Iliac Artery with Nonautologous Tissue Substitute, Open Approach (ICD-10-PCS; 2017-06-26)
PROC: 04UL0KZ Supplement Left Femoral Artery with Nonautologous Tissue Substitute, Open Approach (ICD-10-PCS; 2017-06-26)
PROC: 04CJ0ZZ Extirpation of Matter from Left External Iliac Artery, Open Approach (ICD-10-PCS; principal; 2017-06-26 13:39)
DX: I74.5 Embolism and thrombosis of iliac artery (principal); I74.3 Embolism and thrombosis of arteries of the lower extremities; R79.1 Abnormal coagulation profile; I25.10 Atherosclerotic heart disease of native coronary artery without angina pectoris; Z51.81 Encounter for therapeutic drug level monitoring; I35.0 Nonrheumatic aortic (valve) stenosis; I70.202 Unspecified atherosclerosis of native arteries of extremities, left leg; M54.9 Dorsalgia, unspecified; G89.29 Other chronic pain; F17.290 Nicotine dependence, other tobacco product, uncomplicated; Z82.49 Family history of ischemic heart disease and other diseases of the circulatory system; Z95.2 Presence of prosthetic heart valve; Z95.1 Presence of aortocoronary bypass graft; Z79.01 Long term (current) use of anticoagulants; Z23 Encounter for immunization
CPT/HCPCS: 71045; 75635; 76937; 80048; 80053; 83735; 85025; 85027; 85610; 85730; 86850; 86900; 86901; 86920; 88304; 88307; 88311; 93005; 93306; 93880; 96360; C1757; J0690; J1644; J2270; J2720; J3010; J3480; J7040; Q9967

== ENCOUNTER 2017-07-02 11:41 | Emergency (ER) | payer SELFPAY ==
[~2017-07-02] VITALS: Ht 162.6 cm; Wt 68.0 kg
[~2017-07-02 11:41] MED LIST changes: -ALPR1CON PO; +APIX5TAB PO; -HYDR-2951 PO; -LORTA5 PO; +OXYC1TAB63 PO
[2017-07-02 11:59] VITALS: BP 142/80; PULSE 77; RESP 16; TEMP 98.2; O2SAT 96
--- NOTE | 2017-07-02 12:41 | PD ---
HPI Chief Complaint: Complaint Time Seen by Provider: 12:22 Travel History International Travel<30 days: No Contact w/Intl Traveler<30days: No Traveled to known affect area: No History of Present Illness HPI This 66-year-old male presents with concern for a surgical wound. 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 Surgery was done by Dr. Casillas. He has developed ischemia of the left leg and the operative procedure was a left external iliac and common femoral artery endarterectomy, left profundoplasty, left superficial femoral artery thromboembolectomy and left external iliac and common femoral patch angioplasty. The patient was discharged yesterday. His family has been changing his bandage. They noted a small amount of blood and they say a little bit of pus changing the bandage this morning. The patient has been having some pain at the site but he had been out of his pain medication but is now gotten it refilled. There has not been any fever or chills. The left leg is feeling good PFSH Past Medical History Hx Anticoagulant Therapy: Yes (ELIQUIS) Arthritis: No Asthma: No Autoimmune Disease: No Heart Rhythm Problems: Yes (heart murmur in 2016 then trip;e bypass and valve replacement) Cancer: No Cardiovascular Problems: Yes (CHOL) High Cholesterol: No Chemotherapy: No Chest Pain: No Congestive Heart Failure: No COPD: No Cerebrovascular Accident: No Diabetes: No Endocrine: No GERD: No Genitourinary: No Hiatal Hernia: No Immune Disorder: No Kidney Stones: No Musculoskeletal: No Neurologic: Yes (spinal menegitis 2009) Psychiatric: No Reproductive: Yes (vasotocomy 1981) Respiratory: No Migraines: No Radiation Therapy: No Renal Failure: No Seizures: No Sickle Cell Disease: No Sleep Apnea: No Thyroid Disease: No Past Surgical History Abdominal Surgery: No AICD: No Arteriovenous Shunt: No Body Medical Devices: wire in ribs from tripole bypass - wire in lower jaw- left hand pieces of m Cardiac Surgery: Yes (triple bypass and valve replacement 2015) Coronary Artery Bypass Graft: Yes (X 3) Ear Surgery: No Endocrine Surgery: No Eye Surgery: No Genitourinary Surgery: No Gynecologic Surgery: Yes Insulin Pump: No Joint Replacement: No Oral Surgery: No Pacemaker: No Thoracic Surgery: No Tonsillectomy: Yes Valve Replacement: Yes (AORTIC (MECHANICAL)) Social History Alcohol Use: No Tobacco Use: No (FORMER) Substance Use: No Allergies-Medications (Allergen,Severity, Reaction): Coded Allergies: codeine (Unverified Allergy, Severe, Rash, 07/02/17) Reported Meds & Prescriptions Reported Meds & Active Scripts Active Oxycodone-Acetaminophen 5-325 (Oxycodone HCl/Acetaminophen) 5 Mg-325 Mg Tablet 1 Tab PO Q6HR PRN Eliquis (Apixaban) 5 Mg Tab 5 Mg PO BID 30 Days Review of Systems General / Constitutional: No: Fever, Chills Eyes: No: Diploplia, Blurred Vision HENT: No: Headaches Cardiovascular: No: Chest Pain or Discomfort Respiratory: No: Cough Gastrointestinal: No: Nausea Genitourinary: No: Urgency Musculoskeletal: Positive: Pain Skin: No Rash Neurologic: No: Weakness Physical Exam Narrative GENERAL: Well-developed male SKIN: Focused skin assessment warm/dry. HEAD: Atraumatic. Normocephalic. EYES: Pupils equal and round. No scleral icterus. No injection or drainage. ENT: No nasal bleeding or discharge. Mucous membranes pink and moist. NECK: Trachea midline. No JVD. CARDIOVASCULAR: Regular rate and rhythm. No murmur appreciated. RESPIRATORY: No accessory muscle use. Clear to auscultation. Breath sounds equal bilaterally. GASTROINTESTINAL: Abdomen soft, non-tender, nondistended. Hepatic and splenic margins not palpable. MUSCULOSKELETAL: No obvious deformities. No clubbing. No cyanosis. No edema. Surgical scar in the left groin does not show any erythema or warmth. There is some dried blood at the site but no active bleeding. There is minimal swelling. Distal pulses posterior tibial and dorsalis pedal are intact. NEUROLOGICAL: Awake and alert. No obvious cranial nerve deficits. Motor grossly within normal limits. Normal speech. PSYCHIATRIC: Appropriate mood and affect; insight and judgment normal. Data Data Last Documented VS Vital Signs Date Time Temp Pulse Resp B/P (MAP) Pulse Ox O2 Delivery O2 Flow Rate FiO2 07/02/17 11:59 98.2 77 16 142/80 (100) 96 MDM Medical Decision Making Medical Screen Exam Complete: Yes Emergency Medical Condition: Yes Medical Record Reviewed: Yes Differential Diagnosis Differential includes healing wound, wound infection Narrative Course On My examination this wound appears to be healing well. Arteries appear patent have discussed the case with Dr. Casillas and the patient is stable for discharge Diagnosis Primary Impression: Healing wound Additional Instructions: Follow-up with Dr. Casillas, return as needed Disposition: 01 DISCHARGE HOME Condition: Stable Simone Kang MD July 02, 2017 12:41
== END 2017-07-02 13:23 | disposition home or self-care (01) ==
LOC: PHED 11:41
DX: Z03.89 Encounter for observation for other suspected diseases and conditions ruled out (principal); Z48.812 Encounter for surgical aftercare following surgery on the circulatory system; Z98.62 Peripheral vascular angioplasty status; Z98.890 Other specified postprocedural states; Z86.79 Personal history of other diseases of the circulatory system
CPT/HCPCS: 99281